=== PATIENT | female | born 1995 | race Caucasian/White ===

== ENCOUNTER 2016-09-11 13:10 | Emergency (ER) | payer MEDICAID, OTHER ==
--- NOTE | 2016-09-11 13:48 | UC ---
Dizzy HPI HPI Summary: itching rash on arms and abdomen began to today----today at work she got feeling dizzy, work sent her to get evaluated---patient does admit to not resting well and drinking an excessive amount of caffeine - History Of Current Complaint Chief Complaint: UCAllergicReaction Stated Complaint: RASH/DIZZY Time Seen by Provider: 09/11/16 13:38 Hx Obtained From: Patient Hx Last Menstrual Period: depo - shot ?: No Onset/Duration: Sudden Onset Timing: Minutes - episode of "dizziness" was brief Severity Initially: Mild Severity Currently: Mild Character: Lightheaded, Dizzy Aggravating Factor(s): Nothing Alleviating Factor(s): Nothing Associated Signs And Symptoms: Positive: Decreased Oral Intake - but did eat breakfeast - Allergies/Home Medications Allergies/Adverse Reactions: Allergies Allergy/AdvReac Type Severity Reaction Status Date / Time No Known Allergies Allergy Verified 09/11/16 13:23 Home Medications: Home Medications medroxyPROGESTERone ACETATE* [DEPO-Provera*] 150 mg IM MONTHLY 09/11/16 [ History Confirmed 09/11/16] PMH/Surg Hx/FS Hx/Imm Hx Previously Healthy: Yes - Surgical History Surgical History: None - Family History Known Family History: Positive: None Family History: no family history of vxpxxd-qyeoggxfexd-lpteujxa disorders - Social History Occupation: Employed Full-time - [employer] Lives: With Family Alcohol Use: None Substance Use Type: None Smoking Status (MU): Light Every Day Tobacco Smoker Type: Cigarettes Amount Used/How Often: 1/2 ppd Have You Smoked in the Last Year: Yes When Did the Patient Quit Smoking/Using Tobacco: ABOUT 2 WEEKS AGO - Immunization History Vaccination Up to Date: Yes Review of Systems Constitutional: Negative Skin: Rash Eyes: Negative ENT: Negative Respiratory: Negative Cardiovascular: Negative Gastrointestinal: Negative Genitourinary: Negative Motor: Negative Neurovascular: Negative Musculoskeletal: Negative Neurological: Negative Psychological: Negative All Other Systems Reviewed And Are Negative: Yes Physical Exam Triage Information Reviewed: Yes Appearance: Well-Appearing, No Pain Distress, Well-Nourished Vital Signs: Initial Vital Signs Temp 98.9 F 09/11/16 13:19 Pulse 73 09/11/16 13:19 Resp 16 09/11/16 13:19 BP 97/85 02/24/17 13:19 Pulse Ox 99 09/11/16 13:19 Vital Signs Reviewed: Yes Eye Exam: Normal Eyes: Positive: Conjunctiva Clear ENT Exam: Normal ENT: Positive: Normal ENT inspection, Hearing grossly normal, Pharynx normal, TMs normal. Negative: Nasal congestion, Nasal drainage, Tonsillar swelling, Tonsillar exudate, Trismus, Muffled/hoarse voice Neck exam: Normal Neck: Positive: Supple, Nontender, No Lymphadenopathy Respiratory Exam: Normal Respiratory: Positive: Chest non-tender, Lungs clear, Normal breath sounds, No respiratory distress, No accessory muscle use Cardiovascular Exam: Normal Cardiovascular: Positive: RRR, No Murmur, Pulses Normal, Brisk Capillary Refill Abdominal Exam: Normal Abdomen Description: Positive: Nontender, No Organomegaly, Soft Bowel Sounds: Positive: Present Musculoskeletal Exam: Normal Musculoskeletal: Positive: Strength Intact, ROM Intact, No Edema Neurological Exam: Normal Neurological: Positive: Alert Psychological Exam: Normal Psychological: Positive: Normal Response To Family Skin: Positive: rashes - erythema on arms-patient reports this to be itchy Dizzy Course/Dx - Course Course Of Treatment: increase fluids, decrease caffiene, rest, elimite and prednisone for rash for with PCP - Differential Dx/Diagnosis Differential Diagnosis/HQI/PQRI: Anxiety, Benign Paroxysmal Positional Vertigo, Hypovolemia, Vasovagal Reaction Provider Diagnoses: Scabies, orthostatic hypotension Discharge - Discharge Plan Condition: Stable Disposition: HOME Prescriptions: Permethrin [Elimite] 5 % EX ONCE #60 gm predniSONE TAB* [Deltasone TAB*] 10 mg PO DAILY #18 tab Patient Education Materials: Prednisone (By mouth), Diphenhydramine (By mouth) , Dehydration (ED), Scabies (ED), Itchy Skin (ED) Forms: *Work Release Referrals: Debi Koroma MD [Primary Care Provider] - 3 Days
[2016-09-11 14:14] VITALS: BP 104/76
== END 2016-09-11 14:45 | disposition home or self-care (01) ==
LOC: UCCORT 13:10
DX: B86 Scabies (principal); I95.1 Orthostatic hypotension; Z32.02 Encounter for pregnancy test, result negative; F17.210 Nicotine dependence, cigarettes, uncomplicated
CPT/HCPCS: 81025; 87086; 99212; G0463

== ENCOUNTER 2017-01-01 13:01 | Emergency (ER) | payer MEDICAID ==
[2017-01-01 14:48] VITALS: BP 115/51
--- NOTE | 2017-01-01 15:56 | UC ---
Abdominal Pain Female HPI - HPI Summary HPI Summary: The patient comes in today for: 1. Abdominal pain: Onset: 4 days ago. Palliative/provocative: Nothing makes the pain better or worse other than sleep. Quality: Pinching, and stabbing. Region: Right and left lateral sides. Severity: 0/10 at this time. Time: Comes and goes. It can go up to 6/10, but now is 0/10 Associated symptoms: She states that she is more tired than usual--sore throat present. Headaches: Present. "I'm dehydrated"--she states that she is drinking "a lot" and urinating "a lot." She denies any problems with "sugar." Taking a deep breath does not affect the pain. Mononucleosis: She states that she has had this before. Vomitin times yesterday, and 1 time today. She had blood in her 1st vomiting--streaks. Fevers: None. * - History of Current Complaint Chief Complaint: UCAbdominalPain Stated Complaint: STOMACH/VOMITTING Time Seen by Provider: 01/01/17 15:49 Hx Obtained From: Patient Hx Last Menstrual Period: depo - shot Allergies/Adverse Reactions: Allergies Allergy/AdvReac Type Severity Reaction Status Date / Time No Known Allergies Allergy Verified 01/01/17 14:48 PMH/Surg Hx/FS Hx/Imm Hx Previously Healthy: No - Family planning/Depo-Provera. - Surgical History Surgical History: None - Family History Known Family History: Positive: Hypertension Negative: Diabetes Family History: no family history of peckjv-cmyncareicy-edefrjxc disorders - Social History Occupation: Employed Full-time Alcohol Use: None Substance Use Type: None Smoking Status (MU): Light Every Day Tobacco Smoker Type: Cigarettes Amount Used/How Often: 1/2 ppd Have You Smoked in the Last Year: Yes When Did the Patient Quit Smoking/Using Tobacco: ABOUT 2 WEEKS AGO - Immunization History Vaccination Up to Date: Yes Review of Systems Constitutional: Negative Skin: Negative Eyes: Negative ENT: Negative - No sore throat today. Respiratory: Negative Cardiovascular: Negative Gastrointestinal: Abdominal Pain, Vomiting Genitourinary: Negative All Other Systems Reviewed And Are Negative: Yes Physical Exam Triage Information Reviewed: Yes Appearance: No Pain Distress, Well-Nourished Vital Signs: Initial Vital Signs Temp 98.5 F 01/01/17 14:43 Pulse 62 01/01/17 14:43 Resp 16 01/01/17 14:43 BP 115/51 01/01/17 14:43 Pulse Ox 100 01/01/17 14:43 Vital Signs Reviewed: Yes Eyes: Positive: Conjunctiva Clear. Negative: Discharge ENT: Positive: Hearing grossly normal. Negative: Pharyngeal erythema, Nasal congestion, Nasal drainage, TM bulging, TM dull, TM red, Tonsillar swelling, Tonsillar exudate Dental: Negative: Gross Decay/Caries @, Dental Fracture @ Neck: Positive: Supple, Nontender, No Lymphadenopathy. Negative: Nuchal Rigidity Respiratory: Positive: Lungs clear, No respiratory distress Cardiovascular: Positive: RRR, No Murmur Abdomen Description: Positive: No Organomegaly, Soft, Peritoneal Signs. Negative: Nontender - She had tenderness to palpation of the LUQ and the LLQ with rebound. There was no percussion, Distended, Guarding Musculoskeletal: Positive: Strength Intact, ROM Intact, No Edema Neurological: Positive: Alert, Muscle Tone Normal Psychological: Positive: Age Appropriate Behavior, Consolable Skin: Negative: rashes, breakdown Diagnostics - Laboratory Diagnostic Studies Completed/Ordered: Urine screen: Specific gravity: 1.020. WBC: (-). Nitrite: (-). Blood: (-). Glucose: (-). Protein: (-) Abd Pain Female Course/Dx - Course Course Of Treatment: The patient was told that I was not able to make an exact diagnosis for the cause of their abdominal pain. Further, the patient was told that many things can cause this type of pain--some benign and some life- threatening. Also, the patient was told that some of these life-threatening conditions may present with minimal symptoms or in. atypical ways. Based on all of this--the fact that our physical exam may not be helpful in diagnosing the cause of the abdominal pain, the patient was told that my recommendation is for them to go to the ER. where there can be a more in-depth evaluation of their symptoms. She however declined and was not going to the ER but will be following up with her primary care provider. She said that she only wanted to go home. - Differential Dx/Diagnosis Provider Diagnoses: Abdominal pain. Discharge - Discharge Plan Condition: Stable Disposition: AGAINST MEDICAL ADVICE Additional Instructions: Patient left to go home AMA.
== END 2017-01-01 16:20 | disposition left against medical advice (07) ==
LOC: UCCORT 13:01
DX: R10.32 Left lower quadrant pain (principal); R10.12 Left upper quadrant pain; Z53.20 Procedure and treatment not carried out because of patient's decision for unspecified reasons; Z72.0 Tobacco use
CPT/HCPCS: 81003; 99212; G0463

== ENCOUNTER 2017-01-12 10:33 | Emergency (ER) | payer MEDICAID ==
[2017-01-12 10:45] VITALS: BP 109/45
--- NOTE | 2017-01-12 11:04 | UC ---
Throat Pain/Nasal Braden HPI - HPI Summary HPI Summary: sore throat x 1 day , no fever , no chills, no nasal congestion, no cough , + swollen neck glands - History of Current Complaint Chief Complaint: UCGeneralIllness Stated Complaint: SORE THROAT,[place]ANDS Time Seen by Provider: 01/12/17 10:37 Hx Obtained From: Patient Hx Last Menstrual Period: depo - shot Onset/Duration: Gradual Onset, Lasting Days - 1, Still Present Severity: Severe Cough: None Associated Signs & Symptoms: Negative: Dysphagia, FB Sensation, Drooling, Wheezing, Hoarseness, Sinus Discomfort, Nasal Discharge, Fever, Vomiting, Rash - Allergies/Home Medications Allergies/Adverse Reactions: Allergies Allergy/AdvReac Type Severity Reaction Status Date / Time No Known Allergies Allergy Verified 01/12/17 10:40 PMH/Surg Hx/FS Hx/Imm Hx Previously Healthy: Yes - Surgical History Surgical History: None - Family History Known Family History: Positive: None, Hypertension Negative: Diabetes Family History: no family history of knvapm-sceigadvsif-uxdzuszx disorders - Social History Alcohol Use: Rare Substance Use Type: None Smoking Status (MU): Light Every Day Tobacco Smoker Type: Cigarettes Amount Used/How Often: 1/2 ppd Have You Smoked in the Last Year: Yes When Did the Patient Quit Smoking/Using Tobacco: ABOUT 2 WEEKS AGO - Immunization History Most Recent Influenza Vaccination: UTD Most Recent Tetanus Shot: UTD Most Recent Pneumonia Vaccination: N/A Vaccination Up to Date: Yes Review of Systems Constitutional: Negative Skin: Negative Eyes: Negative ENT: Sore Throat Respiratory: Negative Cardiovascular: Negative Gastrointestinal: Negative All Other Systems Reviewed And Are Negative: Yes Physical Exam Triage Information Reviewed: Yes Appearance: Well-Appearing, No Pain Distress, Well-Nourished Vital Signs: Initial Vital Signs Temp 99.1 F 01/12/17 10:41 Pulse 81 01/12/17 10:41 Resp 16 01/12/17 10:41 BP 109/45 01/12/17 10:41 Pulse Ox 99 01/12/17 10:41 Vital Signs Reviewed: Yes Eyes: Positive: Conjunctiva Clear ENT: Positive: Normal ENT inspection, Hearing grossly normal, Pharyngeal erythema, TMs normal. Negative: Nasal congestion, Nasal drainage Neck exam: Normal Neck: Positive: Supple, Enlarged Nodes @ - cervical lymphadenopathy Respiratory Exam: Normal Respiratory: Positive: Chest non-tender, Lungs clear Cardiovascular: Positive: RRR, No Murmur, Pulses Normal Abdominal Exam: Normal Abdomen Description: Positive: Nontender, No Organomegaly, Soft Bowel Sounds: Positive: Present Musculoskeletal Exam: Normal Skin Exam: Normal Throat Pain/Nasal Course/Dx - Differential Dx/Diagnosis Provider Diagnoses: viral pharyngitis Discharge - Discharge Plan Condition: Stable Disposition: HOME Patient Education Materials: Pharyngitis (ED) Referrals: Debi Koroma MD [Primary Care Provider] - If Needed
== END 2017-01-12 11:11 | disposition home or self-care (01) ==
LOC: UCCORT 10:33
DX: J02.9 Acute pharyngitis, unspecified (principal); F17.210 Nicotine dependence, cigarettes, uncomplicated
CPT/HCPCS: 87651; 99211; G0463

== ENCOUNTER 2017-09-30 14:34 | Emergency (ER) | payer BC ==
--- NOTE | 2017-09-30 15:06 | UC ---
Respiratory Complaint HPI - HPI Summary HPI Summary: 21 year female with wheezing. It started with a cold about 12 days ago or so . about 2 days ago she started noticing she was wheezing. she says she can't wear a bra or anything tight on the chest without feeling like it makes her cough. she has taken cough/cold medicine at the beginning of the illness. she denies hx of asthma or ever having to use an inhaler. she does smoke. No recent travel. No feeling like she will pass out. Symptoms not improved. Kids were sick 2 weekends ago and gave it her perhaps. She has almost vomited from coughing. Also with progressive worsening sinus pressure for 10 days causing headache ad taking APAP for this. [ End ] - History of Current Complaint Chief Complaint: UCRespiratory Stated Complaint: WHEEZING Time Seen by Provider: 09/30/17 15:03 Hx Last Menstrual Period: depo - shot Onset/Duration: Gradual Onset Timing: Constant Severity Initially: Moderate Severity Currently: Moderate Pain Intensity: 3 Character: Cough: Productive Aggravating Factors: Exertion Alleviating Factors: Nothing Associated Signs And Symptoms: Positive: Wheezing, Nasal Congestion, Sinus Discomfort - Allergies/Home Medications Allergies/Adverse Reactions: Allergies Allergy/AdvReac Type Severity Reaction Status Date / Time No Known Allergies Allergy Verified 09/30/17 14:52 PMH/Surg Hx/FS Hx/Imm Hx Previously Healthy: Yes - Surgical History Surgical History: None - Family History Known Family History: Positive: None, Hypertension Negative: Diabetes, Respiratory Disease Family History: no family history of kgxdfr-ffhnrjinqqc-kgqunrmb disorders - Social History Occupation: Unemployed Lives: With Family Alcohol Use: Rare Substance Use Type: None Smoking Status (MU): Light Every Day Tobacco Smoker Type: Cigarettes Amount Used/How Often: 1/2 ppd Have You Smoked in the Last Year: Yes When Did the Patient Quit Smoking/Using Tobacco: ABOUT 2 WEEKS AGO Cessation Counseling: Patient Advised to Stop - Immunization History Most Recent Influenza Vaccination: UTD Most Recent Tetanus Shot: UTD Most Recent Pneumonia Vaccination: N/A Vaccination Up to Date: Yes Review of Systems Constitutional: Fatigue ENT: Sore Throat, Ear Ache, Nasal Discharge, Sinus Congestion, Sinus Pain/ Tenderness Respiratory: Shortness Of Breath, Cough Neurological: Headache Is Patient Immunocompromised?: No All Other Systems Reviewed And Are Negative: Yes Physical Exam Triage Information Reviewed: Yes Appearance: Well-Appearing, No Pain Distress, Well-Nourished Vital Signs: Initial Vital Signs Temp 99.2 F 09/30/17 14:48 Pulse 78 09/30/17 14:48 Resp 14 09/30/17 14:48 BP 127/59 09/30/17 14:48 Pulse Ox 100 09/30/17 14:48 Vital Signs Reviewed: Yes Eye Exam: Normal ENT Exam: Normal ENT: Positive: Nasal congestion, Nasal drainage, TM dull, Sinus tenderness Dental Exam: Normal Neck exam: Normal Neck: Positive: 1 Respiratory Exam: Normal Cardiovascular Exam: Normal Musculoskeletal Exam: Normal Neurological Exam: Normal Psychological Exam: Normal Skin Exam: Normal UC Diagnostic Evaluation - Laboratory O2 Sat by Pulse Oximetry: 100 Respiratory Course/Dx - Course Course Of Treatment: Based on duration of Sx start treatment for sinusitis / bronchitis. Advised to stop smoking. Offer REX prn and cough med prn. If Sx worsened then go to ED. Low risk for PE . Speaking in complete sentences. - Differential Dx/Diagnosis Differential Diagnosis/HQI/PQRI: Asthma, Bronchitis, Laryngitis, Lower Resp Infection, Sinusitis Provider Diagnoses: Sinusitis / Bronchitis Discharge - Discharge Plan Condition: Good Disposition: HOME Prescriptions: Albuterol Sulfate [Proventil Hfa] 108 mcg IN Q6HR PRN #1 aer PRN Reason: Cough Amoxicillin/Clavulanate TAB* [Augmentin TAB 875*] 875 mg PO BID #20 tab Benzonatate CAP* [Tessalon 100 MG CAP*] 100 mg PO TID #20 cap Patient Education Materials: Acute Bronchitis (ED), How to Use a Nebulizer (ED) Referrals: Debi Koroma MD [Primary Care Provider] - 3 Days Additional Instructions: Good [place] Quitting Smoking !
[2017-09-30 15:10] VITALS: BP 127/59
== END 2017-09-30 15:22 | disposition home or self-care (01) ==
LOC: UCCORT 14:34
DX: J32.9 Chronic sinusitis, unspecified (principal); J40 Bronchitis, not specified as acute or chronic
CPT/HCPCS: 99212; G0463

== ENCOUNTER 2018-01-16 12:36 | Emergency (ER) | payer SELFPAY ==
[2018-01-16 12:54] VITALS: BP 107/57
--- NOTE | 2018-01-16 13:25 | UC ---
Abdominal Pain Female HPI - HPI Summary HPI Summary: Pt presents with lower adomina pain x 3 days. Pt states had mild vaginal discharge - white at the time. none since. No dysuria, hematuria. No fever, chills. No nausea, vomiting, diarrhea. No concern for or STD. No analgesia taken Decreased po No h.o ovarian cyst or abd surgeries Pt's medications reviewed - History of Current Complaint Chief Complaint: UCAbdominalPain Stated Complaint: ABDOMINAL PAIN Time Seen by Provider: 01/16/18 13:24 Hx Last Menstrual Period: unknown Pain Intensity: 7 Allergies/Adverse Reactions: Allergies Allergy/AdvReac Type Severity Reaction Status Date / Time No Known Allergies Allergy Verified 01/16/18 12:50 PMH/Surg Hx/FS Hx/Imm Hx Previously Healthy: Yes - Surgical History Surgical History: None - Family History Known Family History: Positive: None, Hypertension Negative: Diabetes, Respiratory Disease Family History: no family history of cfnoii-pukxwycdpqj-sqgiatxb disorders - Social History Occupation: Employed Part-time Lives: With Family Alcohol Use: Rare Substance Use Type: None Smoking Status (MU): Heavy Every Day Tobacco Smoker Type: Cigarettes Amount Used/How Often: 1/2 ppd Have You Smoked in the Last Year: Yes When Did the Patient Quit Smoking/Using Tobacco: ABOUT 2 WEEKS AGO - Immunization History Most Recent Influenza Vaccination: UTD Most Recent Tetanus Shot: UTD Most Recent Pneumonia Vaccination: N/A Vaccination Up to Date: Yes Review of Systems Constitutional: Negative Skin: Negative Gastrointestinal: Abdominal Pain All Other Systems Reviewed And Are Negative: Yes Physical Exam - Summary Physical Exam Summary: Vital Signs Reviewed: Yes A+Ox3, no distress Eyes: Conjunctiva Clear ENT: Hearing grossly normal neck: supple Respiratory: Positive: No respiratory distress, No accessory muscle use Cardiovascular: skin color reflect adequate perfusion abd: soft + TTP RLQ, right pelvic area no guarding, no rebound. No CVA pelvic exam: no external lesion thin white discharge no CMT no odor + TTP R side with bimanual. Musculoskeletal Exam: PRICE x 4 without difficulty Neurological: Positive: Alert, ambulatory without difficulty Psychological: Positive: Normal Response To Family Skin: Positive: no rash, no ecchymosis Triage Information Reviewed: Yes Vital Signs: Initial Vital Signs Temp 98.5 F 01/16/18 12:51 Pulse 60 01/16/18 12:51 Resp 14 01/16/18 12:51 BP 107/57 01/16/18 12:51 Pulse Ox 100 01/16/18 12:51 Abd Pain Female Course/Dx - Course Course Of Treatment: Pt with progressive RLQ x 3 days. Pt with think white discharge and right sided pelvic pain. urine and hcg neg. cultures taken for STD. recommend to ED for further eval. pt in agreement with plan. d/w Oksana Gold NP in ED [facility]. Pt so driving - Differential Dx/Diagnosis Provider Diagnoses: abdominal pain Discharge - Sign-Out/Discharge Documenting (check all that apply): Discharge/Admit/Transfer - Discharge Plan Condition: Stable Disposition: HOME Patient Education Materials: Acute Abdominal Pain (ED) Forms: *Work Release Referrals: Debi Koroma MD [Primary Care Provider] - Additional Instructions: The doctor that evaluated you today recommends you go to the emergency department for further evaluation and treatment of your abdominal pain. The providers at the ED at [facility] are expecting you You had cultures taken to test for vaginal infections - these results take 2-3 days to come back. The care team will contact your if you require treatment as identified on these cultures - Billing Disposition and Condition Condition: STABLE Disposition: Home
[2018-01-16] MEDS ORDERED: Acetaminophen TAB* 325 MG PO ONE (13:43)
== END 2018-01-16 13:51 | disposition home or self-care (01) ==
LOC: UCCORT 12:36
DX: Z87.891 Personal history of nicotine dependence (principal); R10.31 Right lower quadrant pain
CPT/HCPCS: 81003; 84702; 87480; 87491; 87510; 87591; 87661; 99212; A9270-GY; G0463

== ENCOUNTER 2018-05-18 09:23 | Emergency (ER) | payer OTHER ==
--- OUTSIDE RECORDS SUMMARY | 2018-05-18 09:34 | XMS REPORT ---
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 organisms not included in this assay such as N. gonorrhoeae, C. trachomatis, Mobiluncus, Mycoplasma and/or Prevotella. Mixed infections may occur. The performance of this test on patient specimens collected during or immediately after antimicrobial therapy is unknown. The presence or absence of Sarai species, or G. vaginalis cannot be used as a test for therapeutic success or failure. * ML - Main Lab . END OF REPORT DEPARTMENT OF PATHOLOGY, [address] [place] [address] Dangelo Schultz M.D. Director [facility] # [id number] 7 [id number] GC/Chlamydia Source?: Endocervical Trichomonas Source: Endocervical 8 F41.1 9 Thyroglobulin Antibody measured by Leena White Methodology 10 Performed at: RN - [facility] [address], [place], [place] [id number] Senior Service Aide: Ava Combs MD, Phone: [phone] Note: Persistent reduction for 3 months or more in an eGFR <60 mL/min/1.73 m2 defines CKD. Patients with eGFR values >/=60 mL/min/1.73 m2 may also have CKD if evidence of persistent proteinuria is present. The original MDRD equation for estimated GFR is not valid for patients less than 18 years of age. Additional information may be found at www.kdoqi.org. 12 Values below the stated reference ranges of AST and ALT can be seen in normal populations. Clinical correlation is suggested. 13 Bowling Ball Grader And Marker: [id number] 14 [id number] 15 SEE RESULT BELOW Name: CHELY RUBALCAVA : [address]: Gaby Gavin MD Acct: [id number] Unit: [id number] AGE: 20 Location: [facility] Re09/11/16 SEX: F Status: DEP ER SPEC: [id number] KELLY: 09/11/16-[address] [facility] [address]: Rochelle Swenson NP REQ: [id number] RECD: 09/11/16710 STATUS: COMP [facility] DR: Gaby Koroma MD _ SOURCE: URINE SPDESC: ORDERED: Urine Culture COMMENTS: [id number] Procedure Result Reported Site Urine Culture Final 09/13/16- 801 ML No growth of clinically significant organisms * ML - MAIN LAB ([facility]) . END OF REPORT * ML=Testing performed at Main Lab DEPARTMENT OF PATHOLOGY, [address] [place] [address] Dangelo Schultz M.D. Director [facility] # [id number] 16 [id number] 17 SEE RESULT BELOW Name: CHELY RUBALCAVA : [address]: Alireza Machado MD Acct: [id number] Unit: [id number] AGE: 20 Location: [facility] Re03/07/16 SEX: F Status: DEP ER SPEC: [id number] KELLY: 03/07/16-[address]: Rochelle Swenson NP REQ: [id number] RECD: 03/08/16-124 STATUS: LIZETH JORGENSEN DR: Alireza Xiao MD _ SOURCE: URINE SPDESC: ORDERED: Urine Culture COMMENTS: [id number] Procedure Result Reported Site Urine Culture Final 03/09/16- 1213 ML No growth of clinically significant organisms * ML - MAIN LAB ([facility]) . END OF REPORT * ML=Testing performed at Main Lab DEPARTMENT OF PATHOLOGY, [address] [place] [address] Dangelo Schultz M.D. Director [facility] # [id number] 18 Please Note: A nonreactive test result does not exclude the possibility of exposure to, or infection with syphilis. T. pallidum antibodies may be undetectable in some stages of the infection and in some clinical conditions. 19 NO GROUP B STREPTOCOCCI ISOLATED 20 A negative result for either C. trachomatis and/or N. gonorrhoeae does not preclued an infection because results are dependent on adequate specimen collection, absence of inhibitors, and sufficient DNA to be detected. 21 POST GLUCOLA 04/04/15 LAB.TOW Deleted by Reflex Group [facility] 23 POSSIBLE UROGENITAL CONTAMINATION. 24 Integrated [employer]etics Specimen testing referred to [facility]. 25 Organism 1 ! URETHRAL LOCO Quantity ! < 10,000 CFU/mL 26 Acceptable specimens for this test are male urethral swab, endocervical swab and liquid based pap specimens, vaginal swabs in APTIMA transports and first void urine. See online Directory of Services for test number for rectal and pharyngeal specimens. Performed at: RN - [facility] [address] [id number] Senior Service Aide: Ava Combs MD, Phone: [phone] 27 GRAM STAIN ! GRAM STAIN INDICATES NORMAL GENITAL LOCO ! MANY GR POS. BACILLI SUGGESTIVE OF LACTOBACILLUS SP. ! FEW GRAM VARIABLE COCCOBACILLI ! FEW YEAST ! FEW WHITE BLOOD CELLS ! 28 Organism 1 ! YEAST SPECIES Quantity ! MODERATE Organism 2 ! GENITAL LOCO Quantity ! MANY 29 No reportable results 30 HBsAg not detected; does not exclude the possibility of exposure to or early acute infections with HBV. 31 Environmental Exposure: WHO Recommendation <20 Occupational Exposure: OSHA Lead Std 40 EAMON 30 Detection Limit=1 32 Negative <135 Equivocal 135 - 165 Positive >165 A positive result generally indicates exposure to the pathogen or administration of specific immunoglobulins, but it is not indication of active infection or stage of disease. 33 PENDING; TEST PERFORMED ON MONDAYS AND THURSDAYS 34 Values >=10.0 IU/mL are positive for IgG antibodies to rubella virus and are considered IMMUNE. 35 PATIENT UNABLE TO VOID 36 CULTURE TO FOLLOW 37 12/28/14 LAB.EMM1 Deleted by Reflex Group [facility] 38 Organism 1 ! KLEBSIELLA OXYTOCA Quantity ! > 100,000 CFU/mL Organism 2 ! URETHRAL LOCO Quantity ! 10,000 - 50,000 CFU/mL KLEBSIELLA OXYTOCA Target Route Dose M.I.C. RX AB COST ------ ----- -------- ------ -- ------ NITROFURANTOIN 32 S TRIMETHOPRIM/SULFAMETHOXAZOLE <=20 S AMPICILLIN >=32 R CEFAZOLIN 8 S AMPICILLIN/SULBACTAM 8 S CIPROFLOXACIN <=0.25 S PIPERACILLIN/TAZOBACTAM <=4 S CEFTAZIDIME <=1 S CEFTRIAXONE <=1 S CEFEPIME <=1 S LEVOFLOXACIN <=0.12 S IMIPENEM <=0.25 S GENTAMICIN <=1 S TOBRAMYCIN <=1 S 39 SEE RESULT BELOW Name: CHELY RUBALCAVA : [address]: Satya Sexton MD Acct: [id number] Unit: [id number] AGE: 19 Location: [facility] Re12/27/14 SEX: F Status: DEP ER SPEC: [id number] KELLY: 12/27/14-[address] [facility] [address]: Rochelle Swenson NP REQ: [id number] RECD: 12/28/14 STATUS: LIZETH JORGENSEN DR: Satya Xiao MD _ SOURCE: THROAT SPDESC: ORDERED: Throat Beta Str Procedure Result Verified Site Throat Beta Strep Culture Final 12/31/14- 841 ML Organism 1 STREP GRP A BY BACITRACIN DISC * ML - MAIN LAB ([facility]) . END OF REPORT * ML=Testing performed at Main Lab DEPARTMENT OF PATHOLOGY, [facility] [employer] [facility] [place] [id number] Dangelo Schultz M.D. Director [facility] # [id number] 40 FIRST MORNING SPECIMENS GENERALLY CONTAIN THE HIGHEST CONCENTRATION OF HCG AND ARE RECOMMENDED FOR EARLY DETECTION OF . 41 04/05/14 LAB.CKS Deleted by [facility] Group [facility]ACOM 42 RUN DATE: 06/27/13 [facility] LAB LIVE PAGE 1 RUN TIME: [address] [facility] [employer] [place], [place] [address] Specimen Inquiry ----- Name: CHELY RUBALCAVA : [address]: Cortes Mcnamara MD Acct: [id number] Unit: [id number] AGE: 17 Location: [facility] Re06/26/13 SEX: F Status: DEP ER ----- SPEC: [id number] KELLY: 06/26/[address] [facility] [address]: Gloria Machado NP REQ: [id number] RECD: 06/26/13 STATUS: LIZETH JORGENSEN DR: Cortes Xiao MD _ SOURCE: ENDOCERVIX SPDESC: ORDERED: GC/Chlam RNA ----- Procedure Result Verified Site ----- Chlamydia Trachomatis RNA Final 06/27/13-1422 ML NEGATIVE for Chlamydia trachomatis rRNA GC (N. gonorrhoeae) RNA Final 06/27/13-1426 ML NEGATIVE for Neisseria gonorrhoeae rRNA A negative result does not preclude the presence of a C. trachomatis or N. gonorrhoeae infection because results are dependent on adequate specimen collection, absence of inhibitors, and sufficient rRNA to be detected. Test results may be affected by improper specimen collection, improper storage, technical error, or specimen mixup. Limitations of the Procedure: The Aptima Combo 2 Assay is not intended for the evaluation of suspected sexual abuse or for other medico-legal indications. For those patients for whom a false positive result may have adverse psychosocial impact, the [facility] recommends retesting by a method using an alternate technology. Therapeutic failure or success cannot be determined with the Aptima Combo 2 Assay since nucleic acid may persist following appropriate antimicrobial therapy. Results from the Aptima Combo 2 Assay should be interpreted in conjunction with other laboratory and clinical data available to the clinican. CONTINUED ON NEXT PAGE * ML=Testing performed at Main Lab DEPARTMENT OF PATHOLOGY, [facility] [employer] [place], [place] [address] Dangelo Schultz M.D. Director [facility] Permit # [id number] RUN DATE: 06/27/13 [facility] LAB LIVE PAGE 2 RUN TIME: [address] [facility] [employer] [place], [place] [address] Specimen Inquiry ----- Patient: KHADARCHELY [id number] (Continued) ----- Specimen: [id number] Collected: 06/26/13 Received: 06/26/13 (Continued) ----- Procedure Result Verified Site ----- GC (N. gonorrhoeae) RNA Final (continued) 06/27/136725 Performance characteristics for detecting C. trachomatis and N. gonorrhoeae are derived from high prevalence populations. Positive results in low prevalence populations should be interpreted carefully with the understanding that the likelihood of a false positive may be higher than a true positive. ----- END OF REPORT * ML=Testing performed at Main Lab DEPARTMENT OF PATHOLOGY, [address] [place] [address] Dangelo Schultz M.D. Director [facility] Permit # [id number] RUN DATE: 06/28/13 [facility] LAB LIVE PAGE 1 RUN TIME: [address] [place] [address] Specimen Inquiry ----- Name: CHELY RUBALCAVA : [address]: Cortes Mcnamara MD Acct: [id number] Unit: [id number] AGE: 17 Location: [facility] Re06/26/13 SEX: F Status: DEP ER ----- SPEC: [id number] KELLY: 06/26/13-[address] [facility] [address]: Gloria Machado NP REQ: [id number] RECD: 06/26/13 STATUS: LIZETH JORGENSEN DR: Cortes Xiao MD _ SOURCE: URINE SPDESC: ORDERED: Urine Culture ----- Procedure Result Verified Site ----- Urine Culture Final 06/28/13-0902 ML Few Enterobacteriacae; possible contamination. ----- END OF REPORT * ML=Testing performed at Main Lab DEPARTMENT OF PATHOLOGY, [address] [place] [address] Dangelo Schultz M.D. Director [facility] Permit # [id number] PENDING; TEST PERFORMED ON MONDAYS AND THURSDAYS 45 Acceptable specimens for this test are male urethral swab, endocervical swab and liquid based pap specimens, vaginal swabs in APTIMA transports and first void urine. See online PayPerksy of Services for test number for rectal and pharyngeal specimens. Performed at: [address] [id number] Senior Service Aide: Ava Combs MD, Phone: [phone] 46 WRONG TEST ORDERED 47 Organism 1 ! BETA STREPTOCOCCUS GROUP B QUANTITY ! FROM BROTH RECOMMENDED THERAPY: ! PENICILLIN OR AMPICILLIN. 48 Acceptable specimens for this test are male urethral swab, endocervical swab and liquid based pap specimens, vaginal swabs in APTIMA transports and first void urine. See online [employer]ks[employer] of Services for test number for rectal and pharyngeal specimens. Performed at: [address] [id number] Senior Service Aide: Ava Combs MD, Phone: [phone] 49 FORWARDED TO REFERENCE LABORATORY. 50 GENITAL LOCO 51 GRAM STAIN ! GRAM STAIN INDICATES NORMAL GENITAL LOCO ! MANY GR POS. BACILLI SUGGESTIVE OF LACTOBACILLUS SP. 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 PAP ACCESSI QUESTIONNAIRE 07/28 PERTINENT CLINICAL HISTORY FOR PAP (CONSTRUCTION INSPECTOR ) CYTOLOGY (Check all that apply): ? Y Post ? Menopause? LMP date : 05-03-12 If patient had related surgical procedure: Related Therapy: Significant Clinical History: V22.1 ===== DISCLAIMER: The Pap smear is a screening test and not a diagnostic procedure. False negative and false positive results can and do occur for a number of reasons. Regular screening provides an aid in detecting treatable cervical abnormalities, but should not be used as the only means for detecting cervical dysplasia and carcinoma. ----- SAMUEL Mays 07/06/12 1148 ----- 53 No reportable results 54 Approximate Gestational Age and Total BHCG Range: 0.2 - 1 Week........................5-50 mIU/mL 1 - 2 Weeks.....................50- 500 mIU/mL 2 - 3 Weeks..................100-5,000 mIU/mL 3 - 4 Weeks.................500-10,000 mIU/mL 4 - 5 Weeks...............1,000-50, 000 mIU/mL 5 - 6 Weeks.............10,000-100,000 mIU/mL 6 - 8 Weeks.............15,000-200,000 mIU/mL 2 - 3 Months............10,000-100, 000 mIU/mL 55 HBsAg not detected; does not exclude the possibility of exposure to or early acute infections with HBV. 56 The Centers for Disease Control and Prevention states blood lead levels less than 10 ug/dL in children have been associated with numerous adverse health effects. [facility] Guidelines: Blood lead levels in the range 5-9 ug/dL have been associated with adverse health effects in children aged 6 years and younger. Environmental Exposure: WHO Recommendation <20 Occupational Exposure: OSHA Lead Std 40 Detection Limit=1 57 PENDING; TEST PERFORMED ON MONDAYS AND THURSDAYS 58 COLONY COUNT ! 10,000 - 20,000 CFU/ml Organism 1 ! URETHRAL LOCO 59 Nonimmune <0.91 Equivocal 0.91 - 1.09 Immune >1.09 Performed at: - [facility] [id number] Senior Service Aide: Ava Combs MD, Phone: [phone] 60 NEGATIVE FOR CHLAMYDIA TRACHOMATIS BY DNA HYBRIDIZATION ASSAY. THIS TEST IS APPROVED FOR OCULAR AND UROGENITAL SITES ONLY. 61 NEGATIVE FOR NEISSERIA GONORRHOEAE BY DNA HYBRIDIZATION ASSAY. THIS METHOD IS APPROVED FOR UROGENITAL SITES ONLY. 62 Males: < 5.0 miu/ml Non females < 5.0 miu/ml Approx gestational age approx HCG range 0-1 week < 5.0-50 1-2 weeks 50-500 2-3 weeks 100-5000 3-4 weeks 500-10,000 1-2 months 10,000-200,000 2-3 months 15,000-100,000 Please note: The intended use of this assay is the quantitative determination of HCG in human serum or plasma for the early detection of . These assays should not be used to diagnose any condition unrelated to . If an HCG level is inconsistent with, or unsupported by, clinical evidence, results should be confirmed by an alternate HCG method. 63 This test detects intact HCG only and is indicated for the early detection of . 64 Approximate Gestational Age and Total BHCG Range: 0.2 - 1 Week........................5-50 mIU/mL 1 - 2 Weeks.....................50- 500 mIU/mL 2 - 3 Weeks..................100-5,000 mIU/mL 3 - 4 Weeks.................500-10,000 mIU/mL 4 - 5 Weeks...............1,000-50, 000 mIU/mL 5 - 6 Weeks.............10,000-100,000 mIU/mL 6 - 8 Weeks.............15,000-200,000 mIU/mL 2 - 3 Months............10,000-100, 000 mIU/mL 65 01/20/12 LAB.PLW Deleted by Reflex Group [facility] Procedures Date CPT Code Description Status 02/23/2018 64078 Theraputic Or Diagnostic Injection Completed 10/27/2017 59349 Theraputic Or Diagnostic Injection Completed 08/06/2017 02034 Theraputic Or Diagnostic Injection Completed 05/20/2017 71453 Theraputic Or Diagnostic Injection Completed 02/24/2017 20365 Theraputic Or Diagnostic Injection Completed 10/26/2016 07071 Theraputic Or Diagnostic Injection Completed 07/30/2016 93705 Theraputic Or Diagnostic Injection Completed 05/19/2016 50486 Theraputic Or Diagnostic Injection Completed 02/17/2016 05985 Theraputic Or Diagnostic Injection Completed 11/28/2015 68901 Theraputic Or Diagnostic Injection Completed 09/04/2015 35129 Vaginal Delivery Global Care Completed 08/28/2015 23294 Antepartum 7 Or More Total Office Visit Completed 08/21/2015 06070 Antepartum 7 Or More Total Office Visit Completed 07/31/2015 79932 Antepartum 7 Or More Total Office Visit Completed 07/17/2015 56693 Antepartum 7 Or More Total Office Visit Completed 07/08/2015 39330 Antepartum 7 Or More Total Office Visit Completed 06/26/2015 18389 Antepartum 7 Or More Total Office Visit Completed 06/05/2015 17073 Antepartum 7 Or More Total Office Visit Completed 05/02/2015 84078 Antepartum 7 Or More Total Office Visit Completed 03/28/2015 28201 Antepartum 7 Or More Total Office Visit Completed 02/25/2015 44156 Antepartum 7 Or More Total Office Visit Completed 02/16/2013 64937 Anesthesia,Neuraxial Labor Completed 08/10/2006 33271 Removal Foreign Body From External Auditory Canal-W/O Completed Gen. 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 D each day. High calcium foods include dark greenvegetables, some nuts, breads, and cereals and dairy products like yogurt, cottage cheese, ice cream, hard cheese. Supplementing with Vitamin D is probably indicated.-Aim to exercise most days of the week. A great starting point is walking away from your house for 15 minutes, then turning around and walking back home for a total of 30 minutes of walking time. Or, try walking for 10 minutes after eachmeal. Weight- baring exercise, like lifting weights, walking and jogging are excellent to keep bones strong. Swimming and biking are helpful if you have injuries, but these activites do not strengthen your bones as well as walking does.-Limit foods high in salt, sugar, carbs and fat (foods that come maurisio bag/box/package are generally the worst offenders). -Use SPF 30 or higher when you are out in the sun longer than 10 minutes, especially from the hours of 10am-4pm when sun is the strongest.Follow up:1 year for physical. Sooner as needed. No pap until 2020 unless symptomatic.F41.1 Generalized anxiety disorderNew Medication: Magnesium 400 mgComments:Consider starting supplementation with Magnesium 400mg/ day. This can help with anxiety, constipationand headaches. Preclinical studies with rats have found evidence for:1. Association between magnesium deficiency and elevations of anxious and depressive behaviors, which can be eliminated with yarsani of adequate concentrations of magnesium.2. Elevations of limbic -HPA axis activity are associatedwith magnesium deficiency.3. Enhanced anxiolytic and antidepressant properties of lower doses of NMDA antagonist medication when coupled with magnesium.Call for worsening symptoms. Headspace muna is free and helpful for self-meditation.Z23 Encounter for immunizationNew Orders:Flu Vaccine InjectionComments:Flu shot todayDepo shot todayImmunizations/ Injections:Influenza Virus Vaccine, Quadrivalent, 36 Mos+, .5ML
[2018-05-18 09:39] VITALS: BP 120/74
--- NOTE | 2018-05-18 10:12 | UC ---
Throat Pain/Nasal Braden HPI - HPI Summary HPI Summary: 22-year-old female presents with 5 day history of sore throat and general malaise. Associated with nasal congestion, clear nasal discharge, bilateral ear fullness. Denies fever, chills, dysphagia, cough, chest pain, shortness of breath, abdominal pain, nausea, or vomiting. - History of Current Complaint Chief Complaint: UCGeneralIllness Stated Complaint: SORE THROAT, EARS Time Seen by Provider: 05/18/18 09:32 Hx Obtained From: Patient Hx Last Menstrual Period: unknown, depo Onset/Duration: Gradual Onset, Lasting Days - 5 Severity: Moderate Pain Intensity: 7 Cough: None Associated Signs & Symptoms: Positive: Nasal Discharge. Negative: Dysphagia, Drooling, Wheezing, Hoarseness, Sinus Discomfort, Fever, Vomiting, Rash - Allergies/Home Medications Allergies/Adverse Reactions: Allergies Allergy/AdvReac Type Severity Reaction Status Date / Time No Known Allergies Allergy Verified 05/18/18 09:37 Home Medications: Home Medications Magnesium Oxide TAB* [MagOx 400 TAB*] 400 mg PO DAILY 05/18/18 [History Confirmed 05/18/18] PMH/Surg Hx/FS Hx/Imm Hx Previously Healthy: Yes Psychological History: Anxiety - Surgical History Surgical History: None - Family History Known Family History: Positive: None, Hypertension Negative: Diabetes, Respiratory Disease Family History: no family history of rbtmgq-fvyngdskcnq-zwkygdwd disorders - Social History Occupation: Employed Full-time Lives: With Family Alcohol Use: None Substance Use Type: None Smoking Status (MU): Former Smoker Type: Cigarettes Amount Used/How Often: 1/2 ppd Have You Smoked in the Last Year: Yes When Did the Patient Quit Smoking/Using Tobacco: ABOUT 2 WEEKS AGO - Immunization History Most Recent Influenza Vaccination: UTD Most Recent Tetanus Shot: UTD Most Recent Pneumonia Vaccination: N/A Vaccination Up to Date: Yes Review of Systems Constitutional: Fatigue Skin: Negative Eyes: Negative ENT: Sore Throat, Nasal Discharge Respiratory: Negative Cardiovascular: Negative Gastrointestinal: Negative Is Patient Immunocompromised?: No All Other Systems Reviewed And Are Negative: Yes Physical Exam Triage Information Reviewed: Yes Appearance: Well-Appearing, No Pain Distress, Well-Nourished Vital Signs: Initial Vital Signs Temp 97.8 F 05/18/18 09:34 Pulse 58 05/18/18 09:34 Resp 14 05/18/18 09:34 BP 120/74 05/18/18 09:34 Pulse Ox 100 05/18/18 09:34 Vital Signs Reviewed: Yes Eyes: Positive: Conjunctiva Clear. Negative: Discharge ENT: Positive: Pharyngeal erythema - Mild with PND, Nasal congestion, Nasal drainage, TMs normal, Uvula midline. Negative: Tonsillar swelling, Tonsillar exudate, Trismus, Muffled voice, Sinus tenderness Neck: Positive: Supple, Nontender, No Lymphadenopathy Respiratory: Positive: Lungs clear, Normal breath sounds, No respiratory distress Cardiovascular: Positive: RRR, No Murmur Neurological: Positive: Alert Skin Exam: Normal Throat Pain/Nasal Course/Dx - Course Course Of Treatment: 22-year-old female with 5 day history of sore throat. Associated with some URI symptoms. Afebrile. Exam reveals mild pharyngeal erythema without tonsillar edema or exudate. Rapid strep negative. Symptoms are likely a viral pharyngitis. Recommend symptomatic treatment. Warning symptoms were reviewed with the patient. Verbalizes understanding and agrees with land of care. - Differential Dx/Diagnosis Differential Diagnosis/HQI/PQRI: Pharyngitis, Tonsillitis Provider Diagnoses: Viral pharyngitis Discharge - Sign-Out/Discharge Documenting (check all that apply): Patient Departure All imaging exams completed and their final reports reviewed: No Studies - Discharge Plan Condition: Stable Disposition: HOME Patient Education Materials: Pharyngitis (ED) Forms: *Work Release Referrals: Debi Koroma MD [Primary Care Provider] - Additional Instructions: Your rapid strep test in the clinic today was negative. Your symptoms are likely from a viral infection. Viral infections do not respond to antibiotics and are limited to the treatment of symptoms. Viral infections typically run their course in 7-10 days. Drink plenty of fluids to avoid dehydration especially if you are running any fever. Use salt water gargles several times a day. Take over the counter acetaminophen (Tylenol) or ibuprofen (Advil, Motrin) according to directions as needed for pain or fever. You may also use Chloraseptic spray or Cepacol lonzenges according to directions which contain a numbing medication and can provide some temporary relief from your sore throat. Follow up with your primary care provider if symptoms persist for more than 10 days or if you have any worsening of symptoms. Seek immediate medical attention in the emergency room if you have fever greater than 100.5 F despite taking acetaminophen or ibuprofen, are unable to swallow or develop drooling, are unable to open your mouth fully, are unable to eat or drink, have pain that is not relieved with over the counter pain medication, or have any difficulty breathing. - Billing Disposition and Condition Condition: STABLE Disposition: Home - Attestation Statements Provider Attestation: I was available for consult. This patient was seen by the JEFFREY. The patient was not presented to, seen by, or examined by me. -Angel
== END 2018-05-18 10:48 | disposition home or self-care (01) ==
LOC: UCCORT 09:23
DX: J02.9 Acute pharyngitis, unspecified (principal); Z87.891 Personal history of nicotine dependence
CPT/HCPCS: 87651; 99211; G0463

== ENCOUNTER 2018-07-29 10:38 | Emergency (ER) | payer OTHER ==
[2018-07-29 11:31] VITALS: BP 112/61
--- NOTE | 2018-07-29 12:43 | ED ---
Throat Pain/Nasal Congestion - HPI Summary HPI Summary: 22 yr old female with the complaint of sore throat. Onset of cough and cold symptoms a week ago, and over the past 24 hours sore throat. The pain is mostly on the right side of her throat. Pain is worse with swallowing. No drooling, no stridor. No fever. - History of Current Complaint Chief Complaint: UCGeneralIllness Time Seen by Provider: 07/29/18 11:43 - Allergies/Home Medications Allergies/Adverse Reactions: Allergies Allergy/AdvReac Type Severity Reaction Status Date / Time No Known Allergies Allergy Verified 07/29/18 11:31 PMH/Surg Hx/FS Hx/Imm Hx Infectious Disease History: No Infectious Disease History: Denies: Hx Clostridium Difficile, Hx Hepatitis, Hx Human Immunodeficiency Virus (HIV), Hx of Known/Suspected MRSA, Hx Shingles, Hx Tuberculosis, Hx Known/ Suspected VRE, Hx Known/Suspected VRSA, History Other Infectious Disease, Traveled Outside the [place] in Last 30 Days - Family History Known Family History: Positive: None, Hypertension Negative: Diabetes, Respiratory Disease Family History: no family history of glqwmr-azwmetkkrvk-kdzgwruz disorders - Social History Alcohol Use: None Substance Use Type: Reports: None Smoking Status (MU): Former Smoker Type: Cigarettes Amount Used/How Often: 1/2 ppd Have You Smoked in the Last Year: Yes Review of Systems Constitutional: Negative Positive: Sore Throat, Nasal Discharge All Other Systems Reviewed And Are Negative: Yes Physical Exam Triage Information Reviewed: Yes Vital Signs On Initial Exam: Initial Vitals Temp Pulse Resp BP Pulse Ox 98.3 F 55 20 112/61 100 07/29/18 11:27 07/29/18 11:27 07/29/18 11:27 07/29/18 11:27 07/29/18 11:27 Vital Signs Reviewed: Yes Appearance: Positive: Well-Appearing, No Pain Distress Skin: Positive: Warm Eyes: Positive: EOMI ENT: Positive: Pharyngeal erythema, TMs normal, Uvula midline, Other - redness to throat, no obvious STS or tonsil swelling.. Negative: Nasal congestion, Tonsillar swelling, Tonsillar exudate Neck: Positive: Nontender Respiratory/Lung Sounds: Positive: Clear to Auscultation, Breath Sounds Present Cardiovascular: Positive: RRR. Negative: Murmur Abdomen Description: Positive: Nontender Musculoskeletal: Positive: Strength/ROM Intact Neurological: Positive: Sensory/Motor Intact, Alert, Oriented to Person Place, Time, CN Intact II-III Psychiatric: Positive: Normal Diagnostics - Vital Signs Vital Signs Temp Pulse Resp BP Pulse Ox 07/29/18 11:27 98.3 F 55 20 112/61 100 - Laboratory Lab Results: Lab Results 07/29/18 Range/Units 12:10 Group A Strep Rapid Negative (Negative) Lab Statement: Any lab studies that have been ordered have been reviewed, and results considered in the medical decision making process. EENT Course/Dx - Course Course Of Treatment: 22 yr old with URI and sore throat. DC home in stable condition. - Diagnoses Provider Diagnoses: Upper respiratory infection, Pharyngitis Discharge - Sign-Out/Discharge Documenting (check all that apply): Patient Departure All imaging exams completed and their final reports reviewed: No Studies - Discharge Plan Condition: Good Disposition: HOME Patient Education Materials: Pharyngitis (ED), Upper Respiratory Infection (ED) Referrals: Alan Walters MD [Primary Care Provider] - 2 Days - Billing Disposition and Condition Condition: GOOD Disposition: Home
== END 2018-07-29 13:00 | disposition home or self-care (01) ==
LOC: UCCORT 10:38
DX: J06.9 Acute upper respiratory infection, unspecified (principal); J02.9 Acute pharyngitis, unspecified; Z87.891 Personal history of nicotine dependence
CPT/HCPCS: 87651; 99211; G0463

== ENCOUNTER 2018-09-14 13:43 | Emergency (ER) | payer OTHER ==
[2018-09-14 14:26] VITALS: BP 120/67
--- NOTE | 2018-09-14 14:58 | ED ---
Throat Pain/Nasal Congestion - HPI Summary HPI Summary: 22 yr old female with the complaint of sinus pressure, post nasal drip. Onset of symptoms 5 days ago. She has persistent post nasal drip and cough. She denies fever. - History of Current Complaint Chief Complaint: UCGeneralIllness Time Seen by Provider: 09/14/18 14:41 - Allergies/Home Medications Allergies/Adverse Reactions: Allergies Allergy/AdvReac Type Severity Reaction Status Date / Time No Known Allergies Allergy Verified 09/14/18 14:22 Home Medications: Home Medications Dm/Pseudoephed/Acetaminophen [Day-Time Multi-Symptom Co] 1 cap PO ONCE 09/14/18 [History Confirmed 09/14/18] PMH/Surg Hx/FS Hx/Imm Hx Infectious Disease History: No Infectious Disease History: Denies: Hx Clostridium Difficile, Hx Hepatitis, Hx Human Immunodeficiency Virus (HIV), Hx of Known/Suspected MRSA, Hx Shingles, Hx Tuberculosis, Hx Known/ Suspected VRE, Hx Known/Suspected VRSA, History Other Infectious Disease, Traveled Outside the in Last 30 Days - Family History Known Family History: Positive: None, Hypertension Negative: Diabetes, Respiratory Disease Family History: no family history of isrqsy-zaiqzzoscnw-kfkivlya disorders - Social History Alcohol Use: Rare Substance Use Type: Reports: None Smoking Status (MU): Heavy Every Day Tobacco Smoker Type: Cigarettes Amount Used/How Often: 1/2 ppd Have You Smoked in the Last Year: Yes Review of Systems Constitutional: Negative Positive: Nasal Discharge, Other - sinus pressure Positive: Cough All Other Systems Reviewed And Are Negative: Yes Physical Exam Triage Information Reviewed: Yes Vital Signs On Initial Exam: Initial Vitals Temp Pulse Resp BP Pulse Ox 98.4 F 53 16 120/67 98 09/14/18 14:23 09/14/18 14:23 09/14/18 14:23 09/14/18 14:23 09/14/18 14:23 Vital Signs Reviewed: Yes Appearance: Positive: Well-Appearing, No Pain Distress Skin: Positive: Warm, Skin Color Reflects Adequate Perfusion Head/Face: Positive: Normal Head/Face Inspection Eyes: Positive: EOMI ENT: Positive: Pharynx normal, Nasal congestion, Nasal drainage, TMs normal, Sinus tenderness Neck: Positive: Nontender Respiratory/Lung Sounds: Positive: Clear to Auscultation, Breath Sounds Present Cardiovascular: Positive: RRR. Negative: Murmur Abdomen Description: Positive: Nontender Musculoskeletal: Positive: Strength/ROM Intact Neurological: Positive: Sensory/Motor Intact, Alert, Oriented to Person Place, Time, CN Intact II-III Psychiatric: Positive: Normal - [place] Coma Scale Best Eye Response: 4 - Spontaneous Best Motor Response: 6 - Obeys Commands Best Verbal Response: 5 - Oriented Coma Scale Total: 15 Diagnostics - Vital Signs Vital Signs Temp Pulse Resp BP Pulse Ox 09/14/18 14:23 98.4 F 53 16 120/67 98 - Laboratory Lab Statement: Any lab studies that have been ordered have been reviewed, and results considered in the medical decision making process. EENT Course/Dx - Course Course Of Treatment: 22 yr old female with Sinusitis. Rx with augmentin - Diagnoses Provider Diagnoses: Sinusitis Discharge - Sign-Out/Discharge Documenting (check all that apply): Patient Departure All imaging exams completed and their final reports reviewed: No Studies - Discharge Plan Condition: Good Disposition: HOME Prescriptions: Amoxicillin/Clavulanate TAB* [Augmentin TAB 875*] 875 mg PO BID #20 tab Patient Education Materials: Sinusitis (ED) Referrals: SAYRA Ardon [Primary Care Provider] - 3 Days - Billing Disposition and Condition Condition: GOOD Disposition: Home
== END 2018-09-14 15:00 | disposition home or self-care (01) ==
LOC: UCCORT 13:43
DX: J32.9 Chronic sinusitis, unspecified (principal); F17.210 Nicotine dependence, cigarettes, uncomplicated
CPT/HCPCS: 99212; G0463

== ENCOUNTER 2019-02-03 13:04 | Emergency (ER) | payer BC, OTHER ==
[2019-02-03 13:52] VITALS: BP 125/65
--- NOTE | 2019-02-03 14:05 | UC ---
Skin Complaint HPI - HPI Summary HPI Summary: Pt c/o erythematous skin that "keeps spreading" on left lateral trunk and cross anterior chest. Pt reports that she had a "boil" that opened and drained " few days ago" and post draining, the surrounding area became erythematous and itchy. Pt denies being bit by tick or any other known insect. - History of Current Complaint Chief Complaint: UCSkin Time Seen by Provider: 02/03/19 14:00 Stated Complaint: LT SIDE SKIN CONCERN Hx Obtained From: Patient Hx Last Menstrual Period: Depo ?: No Onset/Duration: Gradual Onset, Lasting Days, Still Present, Worse Since - onset Skin Exposure Onset/Duration: Days Ago Timing: Constant Onset Severity: Mild Current Severity: Moderate Pain Intensity: 0 Location: Discrete - left lateral trunk Character: Pruritus, Redness Aggravating Factor(s): Touch Alleviating Factor(s): Unknown Associated Signs & Symptoms: Positive: Rash, Tenderness - Allergy/Home Medications Allergies/Adverse Reactions: Allergies Allergy/AdvReac Type Severity Reaction Status Date / Time No Known Allergies Allergy Verified 09/14/18 14:22 Home Medications: Home Medications Anxiety Medication 02/03/19 [History] PMH/Surg Hx/FS Hx/Imm Hx Previously Healthy: Yes - Surgical History Surgical History: None - Family History Known Family History: Positive: None, Hypertension Negative: Diabetes, Respiratory Disease Family History: no family history of ucvzwm-hvpawhitmny-bnskpkso disorders - Social History Occupation: Employed Full-time Lives: With Family Alcohol Use: Rare Substance Use Type: None Smoking Status (MU): Heavy Every Day Tobacco Smoker Type: Cigarettes Amount Used/How Often: 1/2 ppd Have You Smoked in the Last Year: Yes When Did the Patient Quit Smoking/Using Tobacco: ABOUT 2 WEEKS AGO - Immunization History Most Recent Influenza Vaccination: UTD Most Recent Tetanus Shot: UTD Most Recent Pneumonia Vaccination: N/A Vaccination Up to Date: Yes Review of Systems All Other Systems Reviewed And Are Negative: Yes Constitutional: Positive: Negative Skin: Positive: Rash, Other - erythematous Eyes: Positive: Negative ENT: Positive: Negative Respiratory: Positive: Negative Cardiovascular: Positive: Negative Gastrointestinal: Positive: Negative Genitourinary: Positive: Negative Motor: Positive: Negative Neurovascular: Positive: Negative Musculoskeletal: Positive: Negative Neurological: Positive: Negative Psychological: Positive: Negative Is Patient Immunocompromised?: No Physical Exam Triage Information Reviewed: Yes Appearance: Well-Appearing Vital Signs: Initial Vital Signs Temp 98.2 F 02/03/19 13:49 Pulse 60 02/03/19 13:49 Resp 18 02/03/19 13:49 BP 125/65 02/03/19 13:49 Pulse Ox 100 02/03/19 13:49 Vital Signs Reviewed: Yes Eye Exam: Normal ENT Exam: Normal Dental Exam: Normal Neck exam: Normal Neck: Positive: No Lymphadenopathy Respiratory Exam: Normal Cardiovascular Exam: Normal Musculoskeletal Exam: Normal Neurological Exam: Normal Psychological Exam: Normal Skin Exam: Other - large erythematous blanchable area to left lateral trunk that crosses sternum and mid scapula, Course/Dx - Differential Diagnoses - Skin Complaint Differential Diagnoses: Cellulitis, Contact Dermatitis - Diagnoses Provider Diagnosis: Cellulitis, Pruritus of skin Discharge - Sign-Out/Discharge Documenting (check all that apply): Patient Departure All imaging exams completed and their final reports reviewed: No Studies - Discharge Plan Condition: Stable Disposition: HOME Prescriptions: Cetirizine* [ZyrTEC 10 MG TAB*] 10 mg PO DAILY #10 tab DOXYcycline CAP(*) [DOXYcycline 100MG CAP(*)] 100 mg PO Q12H #20 cap Patient Education Materials: Cellulitis (ED), Itchy Skin (ED) Referrals: Carolyn Doll NP [Primary Care Provider] - If Needed Additional Instructions: Plese note that if your symptoms do not improve or they worsen please go directly to the closest emergency department. - Billing Disposition and Condition Condition: STABLE Disposition: Home
== END 2019-02-03 14:19 | disposition home or self-care (01) ==
LOC: UCCORT 13:04
DX: L03.319 Cellulitis of trunk, unspecified (principal); L03.313 Cellulitis of chest wall; L29.9 Pruritus, unspecified; F17.210 Nicotine dependence, cigarettes, uncomplicated
CPT/HCPCS: 99212; G0463

== ENCOUNTER 2019-02-18 17:25 | Emergency (ER) | payer BC ==
[2019-02-18 17:57] VITALS: BP 102/59
--- NOTE | 2019-02-18 18:08 | UC ---
Hand/Wrist HPI - HPI Summary HPI Summary: 2 days ago was emptying a trash can that had the lid attached by wire. It rolled around the can striking the right wrist/ forearm. Has bruising and persistent pain. - History Of Current Complaint Chief Complaint: UCUpperExtremity Stated Complaint: RIGHT WRIST INJURY Hx Obtained From: Patient Hx Last Menstrual Period: depo ?: No Onset/Duration: Sudden Onset, Lasting Days - 2, Still Present Severity Initially: Moderate Severity Currently: Moderate Pain Intensity: 6 Character Of Pain: Aching, Burning Aggravating Factor(s): Movement, Lifting Alleviating Factor(s): Rest Associated Signs And Symptoms: Positive: Bruising, Numbness/Tingling. Negative : Swelling, Redness, Fever, Weakness Related History: Dominant Hand Right - Allergies/Home Medications Allergies/Adverse Reactions: Allergies Allergy/AdvReac Type Severity Reaction Status Date / Time No Known Allergies Allergy Verified 02/18/19 17:50 PMH/Surg Hx/FS Hx/Imm Hx Previously Healthy: Yes - Surgical History Surgical History: None - Family History Known Family History: Positive: None, Hypertension Negative: Cardiac Disease, Diabetes, Respiratory Disease Family History: no family history of szgdtk-zhpgslqsisp-dwdiuapp disorders - Social History Occupation: Employed Full-time Lives: With Family Alcohol Use: Occasionally Substance Use Type: None Smoking Status (MU): Heavy Every Day Tobacco Smoker Type: Cigarettes Amount Used/How Often: 1/2 ppd Length of Time of Smoking/Using Tobacco: since 2013 Have You Smoked in the Last Year: Yes When Did the Patient Quit Smoking/Using Tobacco: ABOUT 2 WEEKS AGO - Immunization History Most Recent Influenza Vaccination: UTD Most Recent Tetanus Shot: UTD Most Recent Pneumonia Vaccination: N/A Vaccination Up to Date: Yes Review of Systems All Other Systems Reviewed And Are Negative: Yes Skin: Positive: Bruising Neurovascular: Positive: Other - increased sensation to pinprick over the distal ulna, bruised area. Musculoskeletal: Positive: Arthralgia - right ulna Is Patient Immunocompromised?: No Physical Exam Triage Information Reviewed: Yes Appearance: Well-Appearing, Well-Nourished, Pain Distress - mild Vital Signs: Initial Vital Signs Temp 98.2 F 02/18/19 17:53 Pulse 55 02/18/19 17:53 Resp 15 02/18/19 17:53 BP 102/59 02/18/19 17:53 Pulse Ox 100 02/18/19 17:53 Vital Signs Reviewed: Yes Eyes: Positive: Conjunctiva Clear Neck exam: Normal Respiratory Exam: Normal Cardiovascular Exam: Normal Musculoskeletal: Positive: Strength Limited @ - wrist adduction with pain., Other: - tender along the right ulna Neurological Exam: Normal - distal right hand Neurological: Positive: Other: - increased senstion to pinprick over the bruise and slightly distal to the bruise. Psychological Exam: Normal Skin: Positive: Other - bruising over the right distal ulna Diagnostics - Radiology No standard instances Radiology Interpretation Completed By: ED Physician Summary of Radiographic Findings: No fracture Hand/Wrist Course/Dx - Differential Dx/Diagnosis Differential Diagnosis/HQI/PQRI: Contusion, Fracture, Sprain Provider Diagnosis: Contusion of right wrist, initial encounter, Neuritis Discharge - Sign-Out/Discharge Documenting (check all that apply): Patient Departure All imaging exams completed and their final reports reviewed: No - Discharge Plan Condition: Stable Disposition: HOME Patient Education Materials: Contusion in Adults (ED) Referrals: Carolyn Doll NP [Primary Care Provider] - Additional Instructions: Nerve Contusion: A bruised nerve causes the nerve to be irritated and extra sensitive to all sensations. Ice can make it feel worse. Javier wraps frequently aren't tolerated either. It may take weeks to resolve. - Billing Disposition and Condition Condition: STABLE Disposition: Home
--- NOTE | 2019-02-19 07:07 | UC ---
- Progress Note Progress Note: X-ray report with radiologist reading reviewed. No fracture, no change in management. Course/Dx - Diagnoses Provider Diagnoses: Contusion of right wrist, initial encounter, Neuritis Discharge - Sign-Out/Discharge Documenting (check all that apply): Post-Discharge Follow Up All imaging exams completed and their final reports reviewed: Yes - Discharge Plan Condition: Stable Disposition: HOME Patient Education Materials: Contusion in Adults (ED) Referrals: Carolyn Doll NP [Primary Care Provider] - Additional Instructions: Nerve Contusion: A bruised nerve causes the nerve to be irritated and extra sensitive to all sensations. Ice can make it feel worse. Javier wraps frequently aren't tolerated either. It may take weeks to resolve. - Billing Disposition and Condition Condition: STABLE Disposition: Home
== END 2019-02-18 18:38 | disposition home or self-care (01) ==
LOC: UCCORT 17:25
DX: S60.211A Contusion of right wrist, initial encounter (principal); W22.8XXA Striking against or struck by other objects, initial encounter; Y93.89 Activity, other specified; Y92.9 Unspecified place or not applicable; M79.2 Neuralgia and neuritis, unspecified; F17.210 Nicotine dependence, cigarettes, uncomplicated
CPT/HCPCS: 99211; G0463

== ENCOUNTER 2019-06-11 13:30 | Emergency (ER) | payer BC, OTHER ==
[2019-06-11] MEDS ORDERED: NS 0.9% 1000 ML** 1,000 ML IV ONE (14:07)
[2019-06-11] MEDS ORDERED: Ketorolac INJ* 30 MG/ML 1 ML VIAL IV ONE (14:07)
--- NOTE | 2019-06-11 14:22 | ED ---
Abdominal Pain/Female - HPI Summary HPI Summary: Pt is a 23 y/o F presenting to the ED with a chief complaint of RUQ pain initially onset on 06/06 radiating to her back. She went to [facility] on 06/09/19 where she was told it was her gallbladder, then had a UA, blood work , and an ultrasound done, but was not informed of her results and was sent home with a muscle relaxer prescription. The pain has not gone away. She reports nausea, frequent urination, urgency, increased thirst, SOB with lying down, and coughing with lying down. She denies vomiting, diarrhea, fever, vaginal discharge, or vaginal bleeding. - History of Current Complaint Chief Complaint: EDAbdPain Stated Complaint: ABD PAIN PER PT Time Seen by Provider: 06/11/19 13:58 Hx Obtained From: Patient Hx Last Menstrual Period: depo Onset/Duration: Gradual Onset, Lasting Days, Still Present Timing: Days Severity Initially: Moderate Severity Currently: Severe Pain Intensity: 7 Pain Scale Used: 0-10 Numeric Location: Discrete At: RUQ Radiates: Yes Radiates to: Back Aggravating Factor(s): Nothing Alleviating Factor(s): Nothing Associated Signs and Symptoms: Positive: Cough, Back Pain, Urinary Symptoms, Nausea. Negative: Vaginal Bleeding, Vaginal Discharge, Vomiting, Diarrhea Allergies/Adverse Reactions: Allergies Allergy/AdvReac Type Severity Reaction Status Date / Time No Known Allergies Allergy Verified 06/11/19 13:36 Home Medications: Home Medications Cyclobenzaprine HCl 5 mg PO TID PRN 06/11/19 [History Confirmed 06/11/19] Naproxen TAB* [Naprosyn 375 mg TAB*] 375 mg PO BID PRN 06/11/19 [History Confirmed 06/11/19] PMH/Surg Hx/FS Hx/Imm Hx Previously Healthy: Yes Endocrine/Hematology History: Denies: Hx Diabetes Cardiovascular History: Denies: Hx Hypertension History: Reports: Other Problems/Disorders - ovarian cysts Infectious Disease History: No Infectious Disease History: Denies: Hx Clostridium Difficile, Hx Hepatitis, Hx Human Immunodeficiency Virus (HIV), Hx of Known/Suspected MRSA, Hx Shingles, Hx Tuberculosis, Hx Known/ Suspected VRE, Hx Known/Suspected VRSA, History Other Infectious Disease, Traveled Outside the [place] in Last 30 Days - Family History Known Family History: Positive: Hypertension Negative: Cardiac Disease, Diabetes, Respiratory Disease Family History: no family history of fbvpuo-ndqzduuimzm-vidllwnd disorders - Social History Alcohol Use: Occasionally Hx Substance Use: No Substance Use Type: Reports: None Hx Tobacco Use: Yes Smoking Status (MU): Heavy Every Day Tobacco Smoker Type: Cigarettes Amount Used/How Often: 1/2 ppd Length of Time of Smoking/Using Tobacco: since 2013 Have You Smoked in the Last Year: Yes Review of Systems Negative: Fever Positive: Shortness Of Breath, Cough Positive: Abdominal Pain, Nausea. Negative: Vomiting, Diarrhea Positive: frequency, urgency. Negative: discharge, hematuria Positive: Myalgia - back pain All Other Systems Reviewed And Are Negative: Yes Physical Exam - Summary Physical Exam Summary: Constitutional: Well-developed, Well-nourished, Alert. (-) Distressed Skin: Warm, Dry HENT: Normocephalic; Atraumatic Eyes: Conjunctiva normal Neck: Musculoskeletal ROM normal neck. (-) JVD, (-) Stridor, (-) Tracheal deviation Cardio: Rhythm regular, rate normal, Heart sounds normal; Intact distal pulses; Radial pulses are 2+ and symmetric. (-) Murmur Pulmonary/Chest wall: Effort normal. (-) Respiratory distress, (-) Wheezes, (-) Rales Abd: RUQ tenderness. No rebound, no guarding, no flank pain Musculoskeletal: (-) Edema Lymph: (-) Cervical adenopathy Neuro: Alert, Oriented x3 Psych: Mood and affect Normal Triage Information Reviewed: Yes Vital Signs On Initial Exam: Initial Vitals Temp Pulse Resp BP Pulse Ox 98.9 F 85 16 100/85 97 06/11/19 13:34 06/11/19 13:34 06/11/19 13:34 06/11/19 13:34 06/11/19 13:34 Vital Signs Reviewed: Yes Procedures - Sedation Patient Received Moderate/Deep Sedation with Procedure: No Diagnostics - Vital Signs Vital Signs Temp Pulse Resp BP Pulse Ox 06/11/19 13:34 98.9 F 85 16 100/85 97 - Laboratory Result Diagrams: 06/11/19 14:13 06/11/19 14:13 Lab Statement: Any lab studies that have been ordered have been reviewed, and results considered in the medical decision making process. - Ultrasound US gallbladder Ultrasound Interpretation Completed By: Radiologist Summary of Ultrasound Findings: Partially contracted gallbladder. No evidence of gallstones. ED physician has reviewed this report. Abdominal Pain Fem Course/Dx - Course Course Of Treatment: Patient is here with right upper quadrant pain it's been constant for 5 days. Patient was seen at [place] last night with a negative workup including ultrasound, blood work, UA. Patient's overall well-appearing quadrant tenderness. Patient had a negative CBC, CMP, lipase. Patient had a ultrasound which showed a contracted gallbladder but no evidence of gallstones. Patient is given Toradol improvement in her pain. Patient was discharged with Bentyl. - Diagnoses Provider Diagnoses: RUQ pain Discharge ED - Sign-Out/Discharge Documenting (check all that apply): Patient Departure - Discharge Plan Condition: Stable Disposition: HOME Prescriptions: Dicyclomine CAP* [Bentyl CAP*] 10 mg PO TID PRN #20 cap PRN Reason: RUQ pain Patient Education Materials: Acute Abdominal Pain (ED), Abdominal Pain (ED) Referrals: Carolyn Doll NP [Primary Care Provider] - [facility] [Outside] [facility] [Outside] Additional Instructions: Please take your prescribed medications as instructed. Follow up with your primary care provider within the next 1-3 days. Return if you have severe abdominal pain, fever, or any other concerning symptoms. - Billing Disposition and Condition Condition: STABLE Disposition: Home - Attestation Statements Document Initiated by Rubio: Yes Documenting Scribe: Laurel Smiley Provider For Whom Rubio is Documenting (Include Credential): Cosme Hester MD. Scribe Attestation: Laurel Baron, scribed for Cosme Hester MD. on 06/11/19 at 1701. Scribe Documentation Reviewed: Yes Provider Attestation: The documentation as recorded by the Laurel [email or web address] accurately reflects the service I personally performed and the decisions made by , Cosme Hester MD. Status of Scribe Document: Viewed
[2019-06-11 14:24] LABS: ABS Eosinophils 0.2 10^3/ul (0-0.6); ABS Lymphocytes 2.4 10^3/ul (1.0-4.8); ABS Monocytes 0.3 10^3/ul (0-0.8); ABS Neutrophils 2.7 10^3/ul (1.5-7.7); Eosinophil % 3.5 %; Hematocrit 37 % (35-47); Hemoglobin 12.4 g/dL (12.0-16.0); Lymphocyte % 42.8 %; Mean Corpuscular HGB Conc 33 g/dL (31-36); Mean Corpuscular Hemoglobin 28 pg (27-31); Mean Corpuscular Volume 84 fL (80-97); Mean Platelet Volume 8.3 fL (7.4-10.4); Nucleated Red Blood Cells % 0.1; Platelet Count 194 10^3/uL (150-450); Red Blood Count 4.43 10^6 /uL (3.70-4.87); Red Cell Distribution Width 13 % (10-15); White Blood Count 5.6 10^3/uL (3.5-10.8)
[2019-06-11 14:32] LABS: Albumin 4.1 g/dL (3.2-5.2); Anion Gap 3 mmol/L (2-11); CO2 Carbon Dioxide 24 mmol/L (22-32); Calcium 8.7 mg/dL (8.6-10.3); Chloride 110 mmol/L (101-111); Potassium 3.6 mmol/L (3.5-5.0); Sodium 137 mmol/L (135-145)
[2019-06-11 14:39] LABS: ALT 6 U/L (7-52); AST 12 U/L (13-39); Albumin/Globulin Ratio 1.8 (1-3); Alkaline Phosphatase 63 U/L (34-104); BUN/Creatinine Ratio 22.8 (8-20); Blood Urea Nitrogen 18 mg/dL (6-24); EGFR African American 109.1 (>60); EGFR Non-African American 90.2 (>60); Globulin 2.3 g/dL (2-4); Glucose 90 mg/dL (70-100); Total Protein 6.4 g/dL (6.4-8.9)
[2019-06-11 15:00] LABS: HCG Pregnancy < 0.60 mIU/mL
[2019-06-11] MEDS ORDERED: Dicyclomine CAP* 10 MG PO ONE (15:33)
[2019-06-11 16:19] VITALS: BP 112/66
== END 2019-06-11 16:36 | disposition home or self-care (01) ==
LOC: ED 13:30
DX: R10.11 Right upper quadrant pain (principal); F17.210 Nicotine dependence, cigarettes, uncomplicated
CPT/HCPCS: 36415; 76705; 80053; 83690; 84702; 85025; 96361; 96374; 99282; A9270-GY; J1885

== ENCOUNTER 2019-08-19 08:45 | Emergency (ER) | payer BC, MEDICAID ==
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
[2019-08-19 09:07] VITALS: BP 94/58
--- NOTE | 2019-08-19 09:26 | UC ---
Complaint Female HPI - HPI Summary HPI Summary: Patient is year old , who present today to the urgent care with for past days. Pt is 13 weeks , Pt has burning with urination, vaginal itchy, urinary urgency. Symptoms started on Wednesday. Denies any vaginal irritation or discharge. No back pain Denies any fever, chills,Denies any abdominal pain , nausea or vomiting , diarrhea or constipation. - History Of Current Complaint Chief Complaint: UCGU Stated Complaint: URNIARY (13 WEEKS PREGO) Time Seen by Provider: 08/19/19 09:12 Hx Obtained From: Patient Hx Last Menstrual Period: depo ?: Yes - 13 week Pain Intensity: 8 - Allergies/Home Medications Allergies/Adverse Reactions: Allergies Allergy/AdvReac Type Severity Reaction Status Date / Time No Known Allergies Allergy Verified 08/19/19 09:07 Home Medications: Home Medications Metoclopramide HCl [Reglan] 5 mg PO Q6HR PRN 08/19/19 [History Confirmed ] PMH/Surg Hx/FS Hx/Imm Hx - Additional Past Medical History Additional PMH: Past Medical History : None Past Surgical History: No Past History of Procedure Family History : non contributory Social History : Occasional alcohol, former smoker, no drug use. Previously Healthy: Yes - Surgical History Surgical History: None - Family History Known Family History: Positive: Hypertension, Non-Contributory Negative: Cardiac Disease, Diabetes, Respiratory Disease Family History: no family history of wfjvum-eddcdrkxsck-tgilwghh disorders - Social History Alcohol Use: None Substance Use Type: None Smoking Status (MU): Former Smoker Type: Cigarettes Amount Used/How Often: 1/2 ppd Length of Time of Smoking/Using Tobacco: since 2013 Have You Smoked in the Last Year: Yes When Did the Patient Quit Smoking/Using Tobacco: 08/01/19 Household Exposure Type: Cigarettes - Immunization History Most Recent Influenza Vaccination: UTD Most Recent Tetanus Shot: UTD Most Recent Pneumonia Vaccination: N/A Vaccination Up to Date: Yes Review of Systems All Other Systems Reviewed And Are Negative: Yes Constitutional: Positive: Negative Skin: Positive: Negative Eyes: Positive: Negative, Diplopia ENT: Positive: Negative Respiratory: Positive: Negative Cardiovascular: Positive: Negative Gastrointestinal: Positive: Negative Genitourinary: Positive: Dysuria, Frequency, Urgency. Negative: Hematuria, Vaginal/Penile Burning, Vaginal/Penile Itching, Vaginal/Penile Discharge Motor: Positive: Negative Neurovascular: Positive: Negative Musculoskeletal: Positive: Negative Neurological: Positive: Negative Psychological: Positive: Negative Is Patient Immunocompromised?: No Physical Exam - Summary Physical Exam Summary: Vital Signs Reviewed: Yes A+Ox3, no distress Eyes: Conjunctiva Clear ENT: Hearing grossly normal neck: supple Respiratory: Positive: No respiratory distress, No accessory muscle use Abdomen: Soft, No tenderness to palpation, no CVA tenderness Cardiovascular: skin color reflect adequate perfusion Musculoskeletal Exam: PRICE x 4 without difficulty Neurological: Positive: Alert, ambulatory without difficulty Psychological: Positive: Normal Response To Family Skin: Positive: no rash, no ecchymosis Triage Information Reviewed: Yes Vital Signs: Initial Vital Signs Temp 98.6 F 08/19/19 09:02 Pulse 64 08/19/19 09:02 Resp 14 08/19/19 09:02 BP 94/58 08/19/19 09:02 Pulse Ox 100 08/19/19 09:02 Vital Signs Reviewed: Yes Complaint Female Dx - Course Course Of Treatment: UA demonstrates leuc esterase 1+, urine protein 2+ blood 2+ Plan to treat with Keflex advised her to follow up with her OVEN OPERATOR in 2-3 days if no better. Also advised her that somebody will call her with culture results if antibiotics needs to be changed - Differential Dx/Diagnosis Provider Diagnosis: UTI (urinary tract infection) during Discharge ED - Sign-Out/Discharge Documenting (check all that apply): Patient Departure All imaging exams completed and their final reports reviewed: No Studies - Discharge Plan Condition: Stable Disposition: HOME Prescriptions: Cephalexin CAP* [Keflex CAP*] 500 mg PO TID 7 Days #14 cap Patient Education Materials: Urinary Tract Infection in (ED) Referrals: Alireza Weaver MD [Primary Care Provider] - 2 Days Additional Instructions: Please start taking the medication as prescribed to the pharmacy . Urine culture will be done and results will be available later and if antibiotic needs to be changed, somebody will call you. Maintain hydration Follow up with your primary care doctor in 2 days if no improvement. Return to Urgent care / ER if symptoms get worse. - Billing Disposition and Condition Condition: STABLE Disposition: Home
== END 2019-08-19 09:37 | disposition home or self-care (01) ==
LOC: UCCORT 08:45
DX: O23.41 Unspecified infection of urinary tract in pregnancy, first trimester (principal); Z3A.13 13 weeks gestation of pregnancy; Z87.891 Personal history of nicotine dependence
CPT/HCPCS: 81003; 87086; 99212; G0463